=== PATIENT | male | born 1960 | race Caucasian/White ===

== ENCOUNTER → 2017-12-15 | Outpatient (REF) | payer MEDICARE ==
[2017-12-15 13:45] LABS: BASO # 0.1 10^3/uL (0.0-0.2); BASO % 1.5 % (0.0-1.0); EOS # 0.2 10^3/uL (0.0-0.50); EOS % 1.9 % (0.0-3.0); HEMATOCRIT 31.1 % (42.0-52.0); HEMOGLOBIN 10.3 g/dl (13.5-17.5); IMMATURE GRANULOCYTE % 0.4 % (0-3.0); LYMPH # 2.8 10^3/uL (1.5-4.5); LYMPH % 29.4 % (24.0-44.0); MEAN CORPUSCULAR HGB CONC 33.1 g/dl (32.0-36.5); MEAN CORPUSCULAR VOLUME 93.7 fl (80.0-96.0); MONO # 0.4 10^3/uL (0.0-0.8); MONO % 4.3 % (0.0-5.0); NEUTROPHILS % 62.5 % (36.0-66.0); PLATELET COUNT, AUTOMATED 466 10^3/uL (150-450); RED BLOOD COUNT 3.32 10^6/uL (4.30-6.10); RED CELL DISTRIBUTION WIDTH 12.9 % (11.5-14.5); WHITE BLOOD COUNT 9.6 10^3/uL (4.0-10.0)
[2017-12-15 14:02] LABS: ANION GAP 7 MEQ/L (8-16); BLOOD UREA NITROGEN 14 MG/DL (7-18); C REACTIVE PROTEIN QUANTITATIV 2.33 MG/DL (0.00-0.30); CALCIUM LEVEL 8.5 MG/DL (8.5-10.1); CARBON DIOXIDE LEVEL 28 MEQ/L (21-32); CHLORIDE LEVEL 108 MEQ/L (98-107); CREATININE FOR GFR 0.72 MG/DL (0.70-1.30); GLOMERULAR FILTRATION RATE > 60.0 (>56); GLUCOSE, FASTING 97 MG/DL (70-100); POTASSIUM SERUM 4.5 MEQ/L (3.5-5.1); SODIUM LEVEL 143 MEQ/L (136-145)
[2017-12-15 14:15] LABS: ERYTHROCYTE SEDIMENTATION RATE 83 mm/hr (0-20)
== END ==
LOC: M SFHCPLAZ 11:20
DX: L03.115 Cellulitis of right lower limb (principal)
CPT/HCPCS: 80048

== ENCOUNTER 2018-07-06 07:01 | Emergency (ER) | payer MEDICARE ==
[2018-07-06 07:35] LABS: BEDSIDE GLUCOSE 142 MG/DL (70-105)
[2018-07-06] MEDS: METOCLOPRAMIDE INJ 10MG/2ML VIAL (J2765) IV (07:50)
[2018-07-06] MEDS: NS 1,000 ML IV (07:50)
[2018-07-06 08:04] LABS: BASO # 0.1 10^3/uL (0.0-0.2); BASO % 0.4 % (0.0-1.0); EOS % 0.2 % (0.0-3.0); HEMATOCRIT 39.9 % (42.0-52.0); HEMOGLOBIN 13.5 g/dl (13.5-17.5); IMMATURE GRANULOCYTE % 0.5 % (0-3.0); LYMPH # 2.9 10^3/uL (1.5-4.5); LYMPH % 17.5 % (24.0-44.0); MEAN CORPUSCULAR HEMOGLOBIN 30.4 pg (27.0-33.0); MEAN CORPUSCULAR HGB CONC 33.8 g/dl (32.0-36.5); MEAN CORPUSCULAR VOLUME 89.9 fl (80.0-96.0); MONO # 0.4 10^3/uL (0.0-0.8); MONO % 2.4 % (0.0-5.0); NEUTROPHILS # 13.1 10^3/uL (1.8-7.7); PLATELET COUNT, AUTOMATED 333 10^3/uL (150-450); RED BLOOD COUNT 4.44 10^6/uL (4.30-6.10); RED CELL DISTRIBUTION WIDTH 12.3 % (11.5-14.5); WHITE BLOOD COUNT 16.6 10^3/uL (4.0-10.0)
[2018-07-06 08:29] LABS: ALBUMIN 3.6 GM/DL (3.2-5.2); ALBUMIN/GLOBULIN RATIO 1.33 (1.00-1.93); ALKALINE PHOSPHATASE 79 U/L (45-117); ALT/SGPT 15 U/L (12-78); ANION GAP 8 MEQ/L (8-16); AST/SGOT 5 U/L (7-37); BILIRUBIN,DIRECT 0.2 MG/DL (0.0-0.2); BILIRUBIN,TOTAL 0.7 MG/DL (0.2-1.0); BLOOD UREA NITROGEN 15 MG/DL (7-18); CARBON DIOXIDE LEVEL 32 MEQ/L (21-32); CHLORIDE LEVEL 102 MEQ/L (98-107); CREATININE FOR GFR 0.67 MG/DL (0.70-1.30); GLOMERULAR FILTRATION RATE > 60.0 (>56); GLUCOSE, FASTING 159 MG/DL (70-100); LIPASE 57 U/L (73-393); POTASSIUM SERUM 3.6 MEQ/L (3.5-5.1); SODIUM LEVEL 142 MEQ/L (136-145); TOTAL PROTEIN 6.3 GM/DL (6.4-8.2)
[2018-07-06] MEDS: ACETAMINOPHEN 325 MG TAB PO (08:50)
[2018-07-06] MEDS: KETOROLAC 30 MG/ML VIAL (J1885) IV (08:50)
[2018-07-06 09:17] LABS: ERYTHROCYTE SEDIMENTATION RATE 4 mm/hr (0-20)
[2018-07-06 09:50] LABS: KETONE, URINE AUTO RFX 1+ mg/dL (NEGATIVE); LEUKOCYTE ESTERASE UR AUTO RFX NEGATIVE (NEGATIVE); MUCUS, URINE RFX SMALL (NEGATIVE); NITRITE, URINE AUTO RFX NEGATIVE (NEGATIVE); RBC, URINE AUTO RFX 4 /HPF (0-3); SPECIFIC GRAVITY UR AUTO RFX 1.021 (1.002-1.035); SQUAM EPITHELIAL CELL UR AURFX 0 /HPF (0-6); WBC, URINE AUTO RFX 2 /HPF (0-3)
== END 2018-07-06 11:06 | disposition home or self-care (01) ==
LOC: M ED 07:01
DX: G43.909 Migraine, unspecified, not intractable, without status migrainosus (principal); D72.829 Elevated white blood cell count, unspecified; Z87.891 Personal history of nicotine dependence; I10 Essential (primary) hypertension; E78.00 Pure hypercholesterolemia, unspecified; K22.70 Barrett's esophagus without dysplasia; N40.0 Benign prostatic hyperplasia without lower urinary tract symptoms; M54.9 Dorsalgia, unspecified; Z79.899 Other long term (current) drug therapy; Z79.84 Long term (current) use of oral hypoglycemic drugs; Z79.4 Long term (current) use of insulin; Z79.1 Long term (current) use of non-steroidal anti-inflammatories (NSAID); Z88.1 Allergy status to other antibiotic agents; Z88.5 Allergy status to narcotic agent; Z91.048 Other nonmedicinal substance allergy status
CPT/HCPCS: J1885

== ENCOUNTER 2019-11-03 09:26 | Emergency (ER) | payer MEDICARE ==
[~2019-11-03] VITALS: Ht 180.3 cm; Wt 120.5 kg
[~2019-11-03 09:26] MED LIST: ATOR1TAB21 PO; ESOM1CAP5 PO; FLOM0.4C39 PO; FURO20TA2; HUMA100I5 SC; HYDR-3719 PO; IBUP80TA PO; INSULANT SC; LANTINJ4 SC; LIDO1PAD TOP; LYRI200C PO; MAXA10TA14 PO; METF10004 PO; NAPR-885 PO; QUIN1TAB3 PO; ZOFR4TAB14 PO; ZYVO1TAB PO
[2019-11-03] MEDS ORDERED: OMEP-221 (09:37)
[2019-11-03] MEDS ORDERED: OXYC1TAB15 (09:37)
[2019-11-03 11:08] LABS: BASO # 0.1 10^3/uL (0.0-0.2); BASO % 0.8 % (0.0-1.0); EOS # 0.2 10^3/uL (0.0-0.5); EOS % 1.9 % (0.0-3.0); HEMATOCRIT 40.1 % (42.0-52.0); HEMOGLOBIN 13.4 g/dl (13.5-17.5); LYMPH # 3.6 10^3/uL (1.5-5.0); LYMPH % 36.5 % (24.0-44.0); MEAN CORPUSCULAR HEMOGLOBIN 30.4 pg (27.0-33.0); MEAN CORPUSCULAR HGB CONC 33.4 g/dl (32.0-36.5); MEAN CORPUSCULAR VOLUME 90.9 fl (80.0-96.0); MONO # 0.5 10^3/uL (0.0-0.8); MONO % 4.9 % (0.0-5.0); NEUTROPHILS # 5.5 10^3/uL (1.5-8.5); NEUTROPHILS % 55.3 % (36.0-66.0); PLATELET COUNT, AUTOMATED 283 10^3/uL (150-450); RED BLOOD COUNT 4.41 10^6/uL (4.30-6.10); WHITE BLOOD COUNT 9.9 10^3/uL (4.0-10.0)
[2019-11-03 11:36] LABS: BLOOD UREA NITROGEN 20 MG/DL (7-18); CALCIUM LEVEL 8.9 MG/DL (8.5-10.1); CARBON DIOXIDE LEVEL 31 MEQ/L (21-32); CHLORIDE LEVEL 101 MEQ/L (98-107); CREATININE FOR GFR 0.96 MG/DL (0.70-1.30); GLOMERULAR FILTRATION RATE > 60.0 (>56); GLUCOSE, FASTING 252 MG/DL (70-100); POTASSIUM SERUM 4.5 MEQ/L (3.5-5.1); SODIUM LEVEL 137 MEQ/L (136-145)
[2019-11-03] MEDS ORDERED: DOXY100C37 PO (11:55)
[2019-11-03] MEDS ORDERED: ANEXSIA, NORCO 7.5MG/325MG TABLET(HYDROCODONE/APAP) PO ONE (12:00)
[2019-11-03 12:22] VITALS: BP 160/76
--- NOTE | 2019-11-03 12:56 | REP ---
Scrotal sonography: History: Left testicular swelling. Findings: High-resolution bilateral scrotal sonography demonstrates no evidence of intratesticular mass on either side. Right testis measures 5.4 x 2.6 x 3.4 cm. Left testicular dimensions are 5.3 x 2.8 x 4.1 cm. Doppler flow is present bilaterally in the testes. Resistive indices are 0.73 on the right and 0.71 on the left. There is a 4 mm epididymal cyst in the right epididymis. A 2 mm epididymal cyst is seen in the left epididymis. There is scrotal wall and subcutaneous swelling in the perineum lateral to the left testis, moderate in degree. This hypoechoic thickened subcutaneous region is hypervascular consistent with inflammation. Impression: No evidence of intratesticular mass lesion. Scrotal wall and subcutaneous perineal edema lateral to the left testis. No abscess seen. Question cellulitis or inflammation. No intratesticular mass lesion seen. Normal Doppler flow to both testes. Electronically Signed by Marcial Page MD 11/03/2019 03:11 P
== END 2019-11-03 12:28 | disposition home or self-care (01) ==
LOC: M ED 09:26
DX: N49.8 Inflammatory disorders of other specified male genital organs (principal); E11.65 Type 2 diabetes mellitus with hyperglycemia; I10 Essential (primary) hypertension; E78.5 Hyperlipidemia, unspecified; K21.9 Gastro-esophageal reflux disease without esophagitis; Z79.899 Other long term (current) drug therapy; Z79.4 Long term (current) use of insulin; Z88.0 Allergy status to penicillin; Z88.8 Allergy status to other drugs, medicaments and biological substances; Z91.048 Other nonmedicinal substance allergy status

== ENCOUNTER 2020-08-25 15:22 | Inpatient (IN) | payer MEDICARE ==
[~2020-08-25] VITALS: Ht 180.3 cm; Wt 123.5 kg
[~2020-08-25 15:22] MED LIST changes: +DOXY100C37 PO; +OMEP-221; +OXYC1TAB15
[2020-08-25] MEDS ORDERED: MORPHINE 4 MG/ML 1ML VIAL/SYRINGE (J2270) IV ONE ×2 (18:30→22:15)
[2020-08-25 19:08] LABS: BASO # 0.1 10^3/uL (0.0-0.2); BASO % 0.8 % (0.0-1.0); EOS # 0.2 10^3/uL (0.0-0.5); EOS % 1.7 % (0.0-3.0); HEMATOCRIT 37.7 % (42.0-52.0); HEMOGLOBIN 12.5 g/dl (13.5-17.5); LYMPH % 28.4 % (24.0-44.0); MEAN CORPUSCULAR HEMOGLOBIN 30.3 pg (27.0-33.0); MEAN CORPUSCULAR HGB CONC 33.2 g/dl (32.0-36.5); MEAN CORPUSCULAR VOLUME 91.3 fl (80.0-96.0); MONO # 0.6 10^3/uL (0.0-0.8); MONO % 5.4 % (0.0-5.0); NEUTROPHILS # 6.8 10^3/uL (1.5-8.5); NEUTROPHILS % 63.4 % (36.0-66.0); PLATELET COUNT, AUTOMATED 255 10^3/uL (150-450); RED BLOOD COUNT 4.13 10^6/uL (4.30-6.10); WHITE BLOOD COUNT 10.7 10^3/uL (4.0-10.0)
[2020-08-25 19:27] LABS: ERYTHROCYTE SEDIMENTATION RATE 20 mm/hr (0-20)
[2020-08-25 19:39] LABS: BLOOD UREA NITROGEN 16 MG/DL (7-18); C REACTIVE PROTEIN QUANTITATIV 0.76 MG/DL (0.00-0.30); CALCIUM LEVEL 8.6 MG/DL (8.5-10.1); CARBON DIOXIDE LEVEL 30 MEQ/L (21-32); CHLORIDE LEVEL 103 MEQ/L (98-107); CREATININE FOR GFR 0.79 MG/DL (0.70-1.30); GLOMERULAR FILTRATION RATE > 60.0 (>56); GLUCOSE, FASTING 280 MG/DL (70-100); POTASSIUM SERUM 4.4 MEQ/L (3.5-5.1); SODIUM LEVEL 139 MEQ/L (136-145)
--- NOTE | 2020-08-25 20:37 | REPVR ---
PROCEDURE INFORMATION: Exam: US Scrotum Exam date and time: 08/25/2020 8:06 PM Age: 60 years old Clinical indication: Scrotum pain; Additional info: Abscess L scrotum, has had prior TECHNIQUE: Imaging protocol: Real-time ultrasound of the scrotum and contents with color Doppler and image documentation. COMPARISON: Scrotal, US 11/03/2019 10:14 AM FINDINGS: Right testicle: Right testis measures 5.1 x 3.2 x 3.7 cm. Arterial and venous blood flow is detected. There is no mass. A microcalcification is apparent. Left testicle: Left testis measures 5.3 x 2.6 x 3.8 cm. Arterial and venous blood flow is detected. There is no mass. Epididymides: Right epididymis is normal appearance. There is a small 2.8 mm left epididymal head cyst. The left epididymal tail is mildly enlarged and hyperemic as well as hyperechoic. Scrotum: No scrotal thickening is apparent on the images provided other than directly adjacent to the tail of the left epididymis. IMPRESSION: 1. Normal appearance of the testes other than a microcalcification on the right. 2. Possible epididymitis in the left epididymal tail with mild inflammation in the surrounding soft tissues of the scrotum. Electronically signed by: Luz Maria Martell On 08/25/2020 20:38:01 PM
[2020-08-25] MEDS ORDERED: ISOVUE-370 76% 100ML VIAL As Ordered ONE (21:14)
--- NOTE | 2020-08-25 22:10 | REPVR ---
PROCEDURE INFORMATION: Exam: CT Abdomen And Pelvis With Contrast Exam date and time: 08/25/2020 9:24 PM Age: 60 years old Clinical indication: Other: Abscess scrotum; Additional info: Abscess scrotum, dm TECHNIQUE: Imaging protocol: Computed tomography of the abdomen and pelvis with intravenous contrast. Radiation optimization: All CT scans at this facility use at least one of these dose optimization techniques: automated exposure control; mA and/or kV adjustment per patient size (includes targeted exams where dose is matched to clinical indication); or iterative reconstruction. Contrast material: ISOVUE 370; Contrast volume: 100 ml; Contrast route: INTRAVENOUS (IV); COMPARISON: No relevant prior studies available. FINDINGS: Lungs: The lung bases are unremarkable. Liver: There are no focal liver lesions. Gallbladder and bile ducts: Normal. No calcified stones. No ductal dilation. Pancreas: The pancreas appears atrophic.The gallbladder is unremarkable. Spleen: The spleen is normal. Adrenal glands: The adrenal glands are unremarkable. Kidneys and ureters: The kidneys are unremarkable. Stomach and bowel: There is no evidence of intestinal obstruction. Appendix: No evidence of appendicitis. Intraperitoneal space: See "Reproductive" finding. Vasculature: There is no evidence of an infrarenal abdominal aortic aneurysm. Atherosclerosis. Lymph nodes: Unremarkable. No enlarged lymph nodes. Urinary bladder: The bladder is unremarkable. Reproductive: No air is seen in the scrotal sac. No soft tissue stranding or edema is seen in the upper medial thighs or buttocks. There appears to be edema and/or inflammation within the scrotal sac posterior inferiorly as well as a fluid collection the left of midline measuring 4 cm AP by 2 cm in width by 2.4 cm cc, series 303 images 72 -78, series 301 images 192-198, series 302 images 71-81. Bones/joints: Unremarkable. No acute fracture. Soft tissues: There is a fat-containing umbilical hernia. IMPRESSION: There appears to be a rim enhancing fluid collection within the scrotal sac posteriorly and inferiorly to the left midline which was not visualized on the ultrasound. It measures 2 x 2.4 x 4 cm. No air is seen within the scrotum. The inflammation does not appear to extend into the buttocks or upper thighs to suggest Morales gangrene. Electronically signed by: Luz Maria Martell On 08/25/2020 22:10:37 PM
[2020-08-25] MEDS ORDERED: LIDOCAINE 1% MDV 20ML VIAL SC ONE (22:15)
[2020-08-25] MEDS ORDERED: PIPERACILLIN/TAZOBACTAM SOD 3.375 GM in D5W MINI-BAG PLUS 50 ML IV ONE (23:30)
[2020-08-25] MEDS ORDERED: MIDAZOLAM INJ 2MG/2ML VIAL (J2250 PER 1MG) As Ordered ONE (23:41)
[2020-08-25] MEDS ORDERED: ROCURONIUM BROMIDE 50 MG/5 ML VIAL As Ordered ONE (23:41)
[2020-08-25] MEDS ORDERED: fentaNYL 100 MCG/2 ML INJECTION (J3010) As Ordered ONE (23:41)
[2020-08-25] MEDS ORDERED: dexameTHASONE 4 MG/ML 1ML VIAL (J1100 PER 1MG) As Ordered ONE (23:41)
[2020-08-25] MEDS ORDERED: LIDOCAINE 2% 100MG/5ML SDV (FOR ANES.) As Ordered ONE (23:41)
[2020-08-25] MEDS ORDERED: ONDANSETRON 4MG/2ML VIAL As Ordered ONE (23:41)
[2020-08-25] MEDS ORDERED: propofoL 200 MG/20 ML VIAL As Ordered ONE (23:41)
--- NOTE | 2020-08-25 23:42 | SMCUROLCON ---
Urology Consultation General Date of Consultation 08/25/20 Reason For Consultation This patient is seen for Cyst On Groin. History of Present Illness This is a 60 y/o M w/ a PMH significant for DM2, HTN, HL, and SQ abscesses, presenting to the ER w/ L scrotal swelling and pain. He noted that this began about 2-3 days ago and has gradually gotten worse. It is on the L side of his scrotum. He has noted increasing redness to his scrotum and inner L thigh as well. He has not seen any drainage. He denies trauma to his scrotum. He denies fevers. He notes previously having a perianal abscess that was incised and drained in a physician's office several years ago. He notes this quite painful and traumatic. CT A/P done here in the ER is notable for a 2 x 2.4 x 4cm abscess in his scrotum just to the left of midline. There is no SQ emphysema. Past Medical History Medical History see HPI Surgical Hstory I&D perianal abscess Allergies Allergies: Coded Allergies: meperidine (Verified Allergy, Severe, 11/03/19) ANGIOEDEMA TAPE (Verified Allergy, Unknown, 11/03/19) RASH clindamycin (Verified Allergy, Unknown, 11/03/19) RASH Review of Systems Constitutional: Denies: Fever, Chills, Sweats, Weakness, Malaise Pulmonary: Denies: Dyspnea, Cough Cardiovascular: Denies Chest Pain, Denies Palpitations Gastrointestinal: Denies: Nausea, Vomiting, Abdominal Pain Genitourinary: Reports: Other Symptoms (L scrotal swelling and pain) Psych: Reports: Mood Normal Physical Examination General Exam: Alert, Cooperative, No Acute Distress ENT EXAM: Atraumatic Chest Exam: Normal air movement Heart Exam: Rate Normal Abdomen Exam: Soft Male Exam L scrotal swelling w/ bulging SQ abscess seen and palpated on inferior aspect; mild erythema involving L scrotum and inner L thigh; mild tenderness to palpat ion; no crepitus; no active drainage Neuro Exam: Normal Speech Psych Exam: Mental status NL, Mood NL Vital Signs/I&O Vital Signs Date Time Temp Pulse Resp B/P (MAP) Pulse Ox O2 Delivery O2 Flow Rate FiO2 08/25/20 22:34 16 08/25/20 20:37 178/83 (114) 08/25/20 18:34 97.3 81 97 Room Air Laboratory Data 24H Labs Laboratory Tests 2 08/25/20 18:56: Immature Granulocyte % (Auto) 0.3, Neutrophils (%) (Auto) 63.4, Lymphocytes (%) (Auto) 28.4, Monocytes (%) (Auto) 5.4H, Eosinophils (%) (Auto) 1.7, Basophils (%) (Auto) 0.8, Neutrophils # (Auto) 6.8, Lymphocytes # (Auto) 3.0, Monocytes # (Auto) 0.6, Eosinophils # (Auto) 0.2, Basophils # (Auto) 0.1, Nucleated Red Blood Cells % (auto) 0.0, Erythrocyte Sedimentation Rate 20, Anion Gap 6L, Glomerular Filtration Rate > 60.0, Lactic Acid Level 1.6, Calcium Level 8.6, C- Reactive Protein, Quantitative 0.76H 08/25/20 19:44: Urine Color STRAW, Urine Appearance CLEAR, Urine pH 6.0, Urine Specific [place] 1.018, Urine Protein NEGATIVE, Urine Glucose (UA) 3+H, Urine Ketones NEGATIVE, Urine Blood NEGATIVE, Urine Nitrite NEGATIVE, Urine Bilirubin NEGATIVE, Urine U robilinogen 0.2, Urine Leukocyte Esterase NEGATIVE, Urine WBC (Auto) 0, Urine RBC (Auto) 1, Urine Hyaline Casts (Auto) 0, Urine Bacteria (Auto) NEGATIVE, Urine Squamous Epithelial Cells 0, Urine Mucus (Auto) SMALL, Urine Sperm (Auto) 08/25/20 22:32: Coronavirus (COVID-19)(PCR) NEGATIVE CBC/BMP Laboratory Tests 08/25/20 18:56 Assessment This is a 60 y/o M w/ a L scrotal abscess. I recommended a bedside scrotal incision and drainage but the patient refused due to extreme anxiety about possible pain. We therefore will have to do it in the OR. Informed consent was signed. Plan - informed consent signed for incision and drainage of left scrotal abscess - will be done in OR - zosyn given in ER - NPO - recommend admit to hospitalist service postop CARLOTTA BRADSHAW MD Aug 25, 2020 23:42
[2020-08-25] MEDS ORDERED: OMEP-221 PO (23:44)
[2020-08-25] MEDS ORDERED: FURO20TA2 PO (23:44)
[2020-08-25] MEDS ORDERED: ASPI-161 PO (23:44)
[2020-08-25] MEDS ORDERED: PERC7.5T11 PO (23:44)
[2020-08-25] MEDS ORDERED: LIDOCAINE 1% SDV 30ML VIAL As Ordered ONE (23:49)
[2020-08-25] MEDS ORDERED: BUPIVACAINE HCL 0.25% 30ML VIAL As Ordered ONE (23:50)
[2020-08-26] VITALS (9 sets, daily range): BP systolic 149–175; BP diastolic 70–89
[2020-08-26] MEDS ORDERED: DEXTROSE 50% 50 ML SYRINGE IV PRN (00:15)
[2020-08-26] MEDS ORDERED: MOM 30ML SUSPENSION UDC PO PRN (00:15)
[2020-08-26] MEDS ORDERED: MAALOX 30 ML SUSP *UDC PO PRN (00:15)
[2020-08-26] MEDS ORDERED: GLUCOSE 4GM CHEW TABLET PO PRN (00:15)
[2020-08-26] MEDS ORDERED: GLUCAGON INJ 1MG VIAL SC PRN (00:15)
[2020-08-26] MEDS ORDERED: ZOSYN 3.375GM VIAL (J2543) As Ordered ONE (00:35)
[2020-08-26] MEDS ORDERED: oxyCODONE 5MG TAB As Ordered ONE (01:44)
[2020-08-26] MEDS ORDERED: VANCOMYCIN HCL 1,000 MG, VIAL MATE ADAPTER 1 EACH in D5W 250 ML IV ONE (01:45)
[2020-08-26] MEDS ORDERED: ONDANSETRON 4MG/2ML VIAL IV PRN (01:45)
[2020-08-26] MEDS ORDERED: oxyCODONE 5MG TAB PO PRN (01:45)
[2020-08-26] MEDS ORDERED: fentaNYL 100 MCG/2 ML INJECTION (J3010) IV PRN (01:45)
[2020-08-26] MEDS ORDERED: LR 1,000 ML IV SCH (01:45)
[2020-08-26] MEDS: NS 1,000 ML IV SCH ×2 (03:21→09:04)
[2020-08-26] MEDS ORDERED: PREGABALIN 100 MG CAP (LYRICA) PO SCH (04:00)
[2020-08-26] MEDS ORDERED: OMEPRAZOLE 20 MG CAP PO SCH (04:00)
[2020-08-26] MEDS: ACETAMINOPHEN TAB 650MG DOSE (2X325MG) PO PRN ×2 (04:29→11:30)
--- NOTE | 2020-08-26 06:21 | HPEPDOC ---
[facility] Medical History & Physical Date of Admission Aug 26, 2020 Date of Service: Aug 26, 2020 Attending Physician: NATALEE DE DIOS MD History and Physical TIME OF SERVICE: 200am CHIEF COMPLAINT: pain HISTORY OF PRESENT ILLNESS: This 60 yr old M presented w c/o 06/07 in severity pain, redness and swelling of the left side of scrotum that begun around [place]; he waited until the holidays were over to come to the ER. He denied having f/c. He was diagnosed with a left scrotal abscess was given zosyn and underwent I&D. At the time of my evaluation his pain had subsided but not completely resolved. REVIEW OF SYSTEMS: 12-point review of systems negative except as listed in HPI PAST MEDICAL/ SURGICAL HISTORY: IDDM w neuropathy Chronic HTN Hx of Perirectal and scrotal abscesses Class 2 obesity Neck and back DJD DLP GERD SOCIAL HISTORY: Former smoker, doesnt drink alcohol or use recreational drugs FAMILY HISTORY: DM, HTN ALLERGIES: Please see below. HOME MEDICATIONS: Please see below. PHYSICAL EXAMINATION: VITAL SIGNS: Please see below. GENERAL APPEARANCE: NAD / doesnt appear toxic HEENT: EOMI / mask covering nose and mouth CARDIOVASCULAR: RRR/NMRG/ radial pulses intact LUNGS: CTAB on RA ABDOMEN: obese NEUROLOGICAL: speech not dysarthric PSYCHIATRIC: A&Ox 3 / able to understand and follow all commands LABORATORY DATA: 08/25/20 18:56 Immature Granulocyte % (Auto) 0.3, Neutrophils (%) (Auto) 63.4, Lymphocytes (%) (Auto) 28.4, Monocytes (%) (Auto) 5.4H, Eosinophils (%) (Auto) 1.7, Basophils (%) (Auto) 0.8, Neutrophils # (Auto) 6.8, Lymphocytes # (Auto) 3.0, Monocytes # (Auto) 0.6, Eosinophils # (Auto) 0.2, Basophils # (Auto) 0.1, Nucleated Red B lood Cells % (auto) 0.0, Erythrocyte Sedimentation Rate 20, Anion Gap 6L, Glomerular Filtration Rate > 60.0, Lactic Acid Level 1.6, Calcium Level 8.6, C- Reactive Protein, Quantitative 0.76H 08/25/20 19:44: Urine Color STRAW, Urine Appearance CLEAR, Urine pH 6.0, Urine Specific [place] 1.018, Urine Protein NEGATIVE, Urine Glucose (UA) 3+H, Urine Ketones NEGATIVE, Urine Blood NEGATIVE, Urine Nitrite NEGATIVE, Urine Bilirubin NEGATIVE, Urine Urobilinogen 0.2, Urine Leukocyte Esterase NEGATIVE, Urine WBC (Auto) 0, Urine RBC (Auto) 1, Urine Hyaline Casts (Auto) 0, Urine Bacteria (Auto) NEGATIVE, Urine Squamous Epithelial Cells 0, Urine Mucus (Auto) SMALL, Urine Sperm (Auto) 08/25/20 22:32: Coronavirus (COVID-19)(PCR) NEGATIVE 08/26/20 03:22: Bedside Glucose (Misc Panel) 78 08/26/20 06:08: Bedside Glucose (Misc Panel) 143H IMAGING: US Scrotum IMPRESSION: 1. Normal appearance of the testes other than a microcalcification on the right. 2. Possible epididymitis in the left epididymal tail with mild inflammation in the surrounding soft tissues of the scrotum. CT abd/pelvis IMPRESSION: There appears to be a rim enhancing fluid collection within the scrotal sac posteriorly and inferiorly to the left midline which was not visualized on the ultrasound. It measures 2 x 2.4 x 4 cm. No air is seen within the scrotum. The inflammation does not appear to extend into the buttocks or upper thighs to suggest Morales gangrene. MICROBIOLOGY: abscess cx pending... ASSESSMENT: is a 60 yr old w a hx of IDDM w neuropathy, HTN, Hx of Perirectal and scrotal abscesses, Class 2 obesity, DJD, DLP, BPH & GERD who underwent I&D to manage a scrotal abscess. PLAN: 1 Scrotal abscess Plan: transfer to medical floor /descalate abx to Vanc and Cefazolin pending abcess cx results / f/u w 2. IDDM w neuropathy Plan: diabetic diet / f/u accuchecks & A1C / hypoglycemia protocol / sliding scale insulin / hold oral anti-glycemic /decrease AM long acting insulin from 60 units in the morning + 50 units in the evening to 40 units in the morning + 30 units in the evening / c/w Pregabalin 3. Chronic HTN Plan: Quinapril + Furosemide 4. Neck and back DJD Plan: [place] 5. GERD Plan: Omeprazole 6. DLP Plan: Atorvastatin 7. Class 2 obesity BMI of 37.1 complicates care Since the patients BMI >35 with co-existing DM he is a candidate for bariatric surgery Plan: f/u A1C / the patient can f/u w his or her PCP for sleep apnea screening, ash kier boiler consult, to discuss staring Saxenda, which is indicated in patients with a BMI >27 with co-existing DM, HTN or dyslipidemia to help with weight control as an adjunct to exercise & referral to a Bariatric Surgeon / recommend cardiovascular exercise for 40 min 4-5 days a week DVT Px w Lovenox bc Mary Lou score is 7 points Dispo: possibly home tomorrow if cleared by Urology Home Medications Scheduled Aspirin (Aspirin EC) 81 Mg Tablet.dr, 81 MG PO DAILY Atorvastatin Calcium (Atorvastatin Calcium) 20 Mg Tab, 20 MG PO QHS Furosemide (Furosemide) 20 Mg Tablet, 20 MG PO DAILY Insulin Glargine (Lantus) 1 Units/0.01 Ml Susp, 50 UNITS SC QHS Insulin Glargine,Hum.rec.anlog (Lantus Solostar) 100 Unit/Ml Inj, 60 UNITS SC DAILY Insulin Lispro (Humalog Kwikpen U-100) 100 Unit/Ml Inj, 1 DOSE SC AC PER SLIDING SCALE Metformin HCl (Metformin HCl) 1,000 Mg Tab, 1,000 MG PO BID Naproxen (Naproxen) 500 Mg Tab, 500 MG PO BID Omeprazole (Omeprazole) 40 Mg Capsule.dr, 40 MG PO BID Pregabalin (Lyrica) 200 Mg Cap, 200 MG PO TID Quinapril Hcl (Quinapril HCl) 20 Mg Tab, 20 MG PO QHS Scheduled PRN Oxycodone HCl/Acetaminophen (Percocet 7.5-325 mg Tablet) 1 Each Tablet, 1 TAB PO Q6H PRN for PAIN Allergies Coded Allergies: meperidine (Verified Allergy, Severe, 11/03/19) ANGIOEDEMA TAPE (Verified Allergy, Unknown, 11/03/19) RASH clindamycin (Verified Allergy, Unknown, 11/03/19) RASH A-FIB/CHADSVASC A-FIB History Current/History of A-Fib/PAF?: No Current PO Anticoag Therapy: No NATALEE DE DIOS MD Aug 26, 2020 06:21
[2020-08-26] MEDS: VANCOMYCIN HCL 1,000 MG, VIAL MATE ADAPTER 1 EACH in D5W 250 ML IV SCH ×2 (06:32→11:29)
[2020-08-26] MEDS: HumaLOG INSULIN (NovoLOG) PER UNIT SC SCH ×3 (06:32→11:35)
[2020-08-26] MEDS: ANEXSIA, NORCO 7.5MG/325MG TABLET(HYDROCODONE/APAP) PO PRN ×2 (06:34→12:29)
[2020-08-26 06:49] LABS: HEMATOCRIT 36.6 % (42.0-52.0); MEAN CORPUSCULAR HEMOGLOBIN 29.9 pg (27.0-33.0); MEAN CORPUSCULAR HGB CONC 32.8 g/dl (32.0-36.5); PLATELET COUNT, AUTOMATED 238 10^3/uL (150-450); RED BLOOD COUNT 4.02 10^6/uL (4.30-6.10); WHITE BLOOD COUNT 8.6 10^3/uL (4.0-10.0)
[2020-08-26 07:01] LABS: HEMOGLOBIN A1c 9.4 %
[2020-08-26 07:13] LABS: BLOOD UREA NITROGEN 12 MG/DL (7-18); CALCIUM LEVEL 8.5 MG/DL (8.5-10.1); CARBON DIOXIDE LEVEL 32 MEQ/L (21-32); CHLORIDE LEVEL 105 MEQ/L (98-107); CREATININE FOR GFR 0.72 MG/DL (0.70-1.30); GLOMERULAR FILTRATION RATE > 60.0 (>56); GLUCOSE, FASTING 158 MG/DL (70-100); SODIUM LEVEL 141 MEQ/L (136-145)
[2020-08-26] MEDS ORDERED: LEVEMIR (INSULIN DETEMIR) 1 UNITS/0.01ML SC SCH ×2 (09:00→21:00)
[2020-08-26] MEDS ORDERED: ASPIRIN 81 MG ENTERIC TAB PO SCH (09:00)
[2020-08-26] MEDS ORDERED: ENOXAPARIN 40MG/0.4ML SYRINGE (J1650 PER 10MG) SC SCH (09:00)
[2020-08-26] MEDS ORDERED: ceFAZolin SOD 1 GM in D5W MINI-BAG PLUS 50 ML IV SCH (09:00)
[2020-08-26] MEDS ORDERED: FUROSEMIDE 20 MG TAB PO SCH (09:00)
--- NOTE | 2020-08-26 10:19 | RO ---
OPERATIVE NOTE DATE OF OPERATION: 08/26/2020 PREOPERATIVE DIAGNOSIS: Left scrotal abscess. POSTOPERATIVE DIAGNOSIS: Left scrotal abscess. PROCEDURE: Incision and drainage of left scrotal abscess. SURGEON: Reji Jha MD TRAINING ASSOCIATE: None. ANESTHESIA: Monitored Anesthesia Care (MAC) OPERATIVE INDICATIONS: This is a 60-year-old male who presented to the emergency room with findings consistent with left scrotal abscess approximately 4 cm in size. It was recommended he be brought to the operating room today for treatment. DESCRIPTION OF PROCEDURE: The patient was brought to the operating room and MAC anesthesia was administered. Broad spectrum antibiotics were infused. He was placed in the supine position and prepped and draped in usual sterile fashion. At this point approximately 3 cm longitudinal incision was made over the abscess in the left hemiscrotum. As soon as that was done approximately 20 mL of pus drained from the scrotal abscess. Swabs were used to obtain cultures. Once all the pus had drained the abscess cavity was thoroughly irrigated with normal saline. After that was done the patient did appear to have some bleeding from the abscess cavity and this was cauterized. Once satisfied with hemostasis the abscess cavity was packed with a moist Winston dressing and this was covered with ABD gauze pads. This marked the conclusion of the procedure. The patient was awakened from anesthesia and transferred to the recovery room in stable condition. ESTIMATED BLOOD LOSS: 20 mL. COMPLICATIONS: None. SPECIMENS: Cultures from scrotal abscess. PLAN: The patient will be admitted to the hospital for the next day or two and be monitored. Assuming he feels better he can be discharged home. He will have to continue with wet-to-dry dressings at least twice daily and then follow up in urology clinic in about one week. MATEO
[2020-08-26] MEDS ORDERED: BACT800T5 PO (12:30)
--- NOTE | 2020-08-26 12:54 | IPNPDOC ---
Subjective Review oF Systems Chief Complaint The patient is a 60-year-old male admitted with a reason for visit of Abscess Of Scrotum. Events since Last Encounter No acute events o/n. Scrotal pain improved. Ambulating well. No f/c/ns. Objective Physical Examination General Exam: Alert, Cooperative, No Acute Distress Neuro Exam: Normal Speech Psych Exam: Mental status NL, Mood NL Other physical findings L hemiscrotum w/ less edema and erythema - packing removed w/ no active drainage Vital Signs/I&O Vital Signs Date Time Temp Pulse Resp B/P (MAP) Pulse Ox O2 Delivery O2 Flow Rate FiO2 08/26/20 12: 18 08/26/20 10:00 98.2 73 162/83 (109) 96 Room Air I&O- Last 24 Hours up to 6 AM 08/26/20 05:59 Intake Total 600 ml Output Total 910 ml Balance -310 ml Laboratory Data Labs 24H Laboratory Tests 2 08/25/20 18:56: Immature Granulocyte % (Auto) 0.3, Neutrophils (%) (Auto) 63.4, Lymphocytes (%) (Auto) 28.4, Monocytes (%) (Auto) 5.4H, Eosinophils (%) (Auto) 1.7, Basophils (%) (Auto) 0.8, Neutrophils # (Auto) 6.8, Lymphocytes # (Auto) 3.0, Monocytes # (Auto) 0.6, Eosinophils # (Auto) 0.2, Basophils # (Auto) 0.1, Nucleated Red Blood Cells % (auto) 0.0, Erythrocyte Sedimentation Rate 20, Anion Gap 6L, Glomerular Filtration Rate > 60.0, Lactic Acid Level 1.6, Calcium Level 8.6, C- Reactive Protein, Quantitative 0.76H 08/25/20 19:44: Urine Color STRAW, Urine Appearance CLEAR, Urine pH 6.0, Urine Specific [place] 1.018, Urine Protein NEGATIVE, Urine Glucose (UA) 3+H, Urine Ketones NEGATIVE, Urine Blood NEGATIVE, Urine Nitrite NEGATIVE, Urine Bilirubin NEGATIVE, Urine Urobilinogen 0.2, Urine Leukocyte Esterase NEGATIVE, Urine WBC (Auto) 0, Urine RBC (Auto) 1, Urine Hyaline Casts (Auto) 0, Urine Bacteria (Auto) NEGATIVE, Ur ine Squamous Epithelial Cells 0, Urine Mucus (Auto) SMALL, Urine Sperm (Auto) 08/25/20 22:32: Coronavirus (COVID-19)(PCR) NEGATIVE 08/26/20 03:22: Bedside Glucose (Misc Panel) 78 08/26/20 06:08: Bedside Glucose (Misc Panel) 143H 08/26/20 06:32: Nucleated Red Blood Cells % (auto) 0.0, Anion Gap 4L, Glomerular Filtration Rate > 60.0, Estimated Mean Plasma Glucose 223H, Hemoglobin A1c 9.4, Calcium Level 8.5 08/26/20 11:31: Bedside Glucose (Misc Panel) 253H CBC/BMP Laboratory Tests 08/25/20 18:56 08/26/20 06:32 FSBS Laboratory Tests Test 08/26/20 03:22 08/26/20 06:08 08/26/20 11:31 Range/Units Bedside Glucose (Misc Panel) 78 143 253 70-105 MG/DL Microbiology Microbiology 08/26/20 Gram Stain - Final, Resulted 08/26/20 Abscess Culture, Resulted Pending 08/26/20 Anaerobic Culture, Received Pending Assessment/Plan Date Seen The patient was seen on 08/26/20. Patient Summary This is 60 y/o M POD1 s/p I&D of left scrotal abscess. Pain is improved. WBC normal this morning. No fevers. Gram stain and cultures pending. Plan/VTE VTE Prophylaxis Ordered?: Yes VTE Exclusion Mechanical Proph: N/A:VTE Prophy Ordered Plan - change dressing wet to dry daily - will demonstrate to patient's so she can do it - can switch to bactrim bid for 2 wks - will f/u on culture results and change as needed - will schedule f/u in urology office next wk CARLOTTA BRADSHAW MD Aug 26, 2020 12:54
--- NOTE | 2020-08-26 12:55 | DS.PDOC ---
Discharge Summary General Date of Admission Aug 26, 2020 at 00:10 Date of Discharge 08/26/20 Specialist/Consultants Involve urology dr ruiz Discharge Summary PROCEDURES PERFORMED DURING STAY: [None]. DISCHARGE DIAGNOSES: #scrotal abscess #IDDM w neuropathy #Chronic HTN #Hx of Perirectal and scrotal abscesses #Class 2 obesity #Neck and back DJD #DLP #GERD COMPLICATIONS/CHIEF COMPLAINT: Abscess Of Scrotum. HPI/Hospital Course: This 60 yr old M presented w c/o 06/07 in severity pain, redness and swelling of the left side of scrotum that begun around [place]; he waited until the holidays were over to come to the ER. He denied having f/c. He was diagnosed with a left scrotal abscess was given zosyn and underwent I&D. He was seen in consultation by urology with recommendations for oral antibiotics and outpatient follow up. Hospital stay was otherwise unremarkable. DISCHARGE MEDICATIONS: Please see below. ALLERGIES: Please see below. PHYSICAL EXAMINATION ON DISCHARGE: VITAL SIGNS: Please see below. GENERAL APPEARANCE: NAD / doesnt appear toxic HEENT: EOMI / mask covering nose and mouth CARDIOVASCULAR: RRR/NMRG/ radial pulses intact LUNGS: CTAB on RA ABDOMEN: obese NEUROLOGICAL: speech not dysarthric PSYCHIATRIC: A&Ox 3 / able to understand and follow all commands LABORATORY DATA: Please see below. ACTIVITY: [As tolerated]. DISPOSITION: Discharge home DISCHARGE INSTRUCTIONS: 1. Follow up PCP in 3-5 days. 2. Follow up urology within one week as scheduled 3. Dressing changes as directed by urology. DISCHARGE CONDITION: [Stable]. TIME SPENT ON DISCHARGE: 35 minutes. Vital Signs/I&Os Vital Signs Date Time Temp Pulse Resp B/P (MAP) Pulse Ox O2 Delivery O2 Flow Rate FiO2 08/26/20 12:29 18 08/26/20 10:00 98.2 73 162/83 (109) 96 Room Air I&O- Last 24 Hours up to 6 AM 08/26/20 06:00 Intake Total 960 ml Output Total 1310 ml Balance -350 ml Laboratory Data Labs 24H Laboratory Tests 2 08/25/20 18:56: Immature Granulocyte % (Auto) 0.3, Neutrophils (%) (Auto) 63.4, Lymphocytes (%) (Auto) 28.4, Monocytes (%) (Auto) 5.4H, Eosinophils (%) (Auto) 1.7, Basophils (%) (Auto) 0.8, Neutrophils # (Auto) 6.8, Lymphocytes # (Auto) 3.0, Monocytes # (Auto) 0.6, Eosinophils # (Auto) 0.2, Basophils # (Auto) 0.1, Nucleated Red Blood Cells % (auto) 0.0, Erythrocyte Sedimentation Rate 20, Anion Gap 6L, Glomerular Filtration Rate > 60.0, Lactic Acid Level 1.6, Calcium Level 8.6, C- Reactive Protein, Quantitative 0.76H 08/25/20 19:44: Urine Color STRAW, Urine Appearance CLEAR, Urine pH 6.0, Urine Specific [place] 1.018, Urine Protein NEGATIVE, Urine Glucose (UA) 3+H, Urine Ketones NEGATIVE, Urine Blood NEGATIVE, Urine Nitrite NEGATIVE, Urine Bilirubin NEGATIVE, Urine Urobilinogen 0.2, Urine Leukocyte Esterase NEGATIVE, Urine WBC (Auto) 0, Urine RBC (Auto) 1, Urine Hyaline Casts (Auto) 0, Urine Bacteria (Auto) NEGATIVE, Urine Squamous Epithelial Cells 0, Urine Mucus (Auto) SMALL, Urine Sperm (Auto) 08/25/20 22:32: Coronavirus (COVID-19)(PCR) NEGATIVE 08/26/20 03:22: Bedside Glucose (Misc Panel) 78 08/26/20 06:08: Bedside Glucose (Misc Panel) 143H 08/26/20 06:32: Nucleated Red Blood Cells % (auto) 0.0, Anion Gap 4L, Glomerular Filtration Rate > 60.0, Estimated Mean Plasma Glucose 223H, Hemoglobin A1c 9.4, Calcium Level 8.5 08/26/20 11:31: Bedside Glucose (Misc Panel) 253H CBC/BMP Laboratory Tests 08/25/20 18:56 08/26/20 06:32 FSBS Laboratory Tests Test 08/26/20 03:22 08/26/20 06:08 08/26/20 11:31 Range/Units Bedside Glucose (Misc Panel) 78 143 253 70-105 MG/DL Microbiology Microbiology 08/26/20 Gram Stain - Final, Resulted 08/26/20 Abscess Culture, Resulted Pending 08/26/20 Anaerobic Culture, Received Pending Discharge Medications Scheduled Aspirin (Aspirin EC) 81 Mg Tablet.dr, 81 MG PO DAILY, (Reported) Atorvastatin Calcium (Atorvastatin Calcium) 20 Mg Tab, 20 MG PO QHS, (Reported) Furosemide (Furosemide) 20 Mg Tablet, 20 MG PO DAILY, (Reported) Insulin Glargine (Lantus) 1 Units/0.01 Ml Susp, 50 UNITS SC QHS, (Reported) Insulin Glargine,Hum.rec.anlog (Lantus Solostar) 100 Unit/Ml Inj, 60 UNITS SC DAILY, (Reported) Insulin Lispro (Humalog Kwikpen U-100) 100 Unit/Ml Inj, 1 DOSE SC AC, (Reported) PER SLIDING SCALE Metformin HCl (Metformin HCl) 1,000 Mg Tab, 1,000 MG PO BID, (Reported) Omeprazole (Omeprazole) 40 Mg Capsule.dr, 40 MG PO BID, (Reported) Pregabalin (Lyrica) 200 Mg Cap, 200 MG PO TID, (Reported) Quinapril Hcl (Quinapril HCl) 20 Mg Tab, 20 MG PO QHS, (Reported) Sulfamethoxazole/Trimethoprim (Bactrim Ds Tablet) 1 Each Tablet, 1 TAB PO BID Scheduled PRN Oxycodone HCl/Acetaminophen (Percocet 7.5-325 mg Tablet) 1 Each Tablet, 1 TAB PO Q6H PRN for PAIN, (Reported) Allergies Coded Allergies: meperidine (Verified Allergy, Severe, 11/03/19) ANGIOEDEMA TAPE (Verified Allergy, Unknown, 11/03/19) RASH clindamycin (Verified Allergy, Unknown, 11/03/19) RASH JOLENE MONAE MD Aug 26, 2020 12:55
[2020-08-26] MEDS ORDERED: ATORVASTATIN 20 MG TAB PO SCH (21:00)
[2020-08-26] MEDS ORDERED: QUINAPRIL 20 MG TAB PO SCH (21:00)
== END 2020-08-26 14:30 | disposition home or self-care (01) | DRG 728 ==
LOC: M ED 15:22 → M ED INP 08-26 00:10 → M MS5PR 08-26 02:12
PROVIDERS: ADMIT Internal Medicine; ATTEND Internal Medicine
PROC: 0V953ZZ Drainage of Scrotum, Percutaneous Approach (ICD-10-PCS; principal; 2020-08-26)
DX: N49.2 Inflammatory disorders of scrotum (principal); E11.40 Type 2 diabetes mellitus with diabetic neuropathy, unspecified; I10 Essential (primary) hypertension; K21.9 Gastro-esophageal reflux disease without esophagitis; M54.2 Cervicalgia; M54.5 Low back pain; E66.9 Obesity, unspecified; Z79.82 Long term (current) use of aspirin; Z79.899 Other long term (current) drug therapy; Z88.8 Allergy status to other drugs, medicaments and biological substances

== ENCOUNTER 2021-03-10 06:07 | Inpatient (IN) | payer MEDICARE ==
[~2021-03-10] VITALS: Ht 180.3 cm; Wt 118.9 kg
[~2021-03-10 06:07] MED LIST changes: +ASPI-161 PO; +BACT800T5 PO; +DOXY-443 PO; -DOXY100C37 PO; +FURO20TA2 PO; -OMEP-221; +OMEP40CA5; +OMEP40CA5 PO; -OXYC1TAB15; +OXYC7.5T3; +PERC7.5T11 PO
[2021-03-10] MEDS ORDERED: KETOROLAC 30 MG/ML 1ML VIAL IV ONE (07:05)
[2021-03-10] MEDS ORDERED: NS 1,000 ML IV ONE (07:05)
[2021-03-10] MEDS ORDERED: ONDANSETRON 4MG/2ML VIAL IV ONE (07:05)
[2021-03-10] MEDS ORDERED: LISI20TA33 (07:11)
[2021-03-10] MEDS ORDERED: SUMA100T2 PO (07:11)
[2021-03-10] MEDS ORDERED: CARV12.5 PO (07:11)
[2021-03-10] MEDS ORDERED: TOPI50TA9 PO (07:11)
[2021-03-10] MEDS ORDERED: SPIR1TAB34 PO (07:11)
[2021-03-10 07:34] LABS: BASO # 0.1 10^3/uL (0.0-0.2); BASO % 0.4 % (0.0-1.0); EOS # 0.1 10^3/uL (0.0-0.5); EOS % 0.4 % (0.0-3.0); HEMATOCRIT 26.8 % (42.0-52.0); HEMOGLOBIN 8.8 g/dl (13.5-17.5); LYMPH # 3.9 10^3/uL (1.5-5.0); LYMPH % 20.5 % (24.0-44.0); MEAN CORPUSCULAR HEMOGLOBIN 29.7 pg (27.0-33.0); MEAN CORPUSCULAR HGB CONC 32.8 g/dl (32.0-36.5); MEAN CORPUSCULAR VOLUME 90.5 fl (80.0-96.0); MONO # 0.7 10^3/uL (0.0-0.8); MONO % 3.7 % (2.0-8.0); NEUTROPHILS % 73.4 % (36.0-66.0); PLATELET COUNT, AUTOMATED 419 10^3/uL (150-450); RED BLOOD COUNT 2.96 10^6/uL (4.30-6.10); WHITE BLOOD COUNT 19.1 10^3/uL (4.0-10.0)
[2021-03-10 08:11] LABS: ACETONE/KETONE 0.95 MG/DL (<2.81); ALBUMIN 2.7 GM/DL (3.2-5.2); ALT/SGPT 18 U/L (12-78); BILIRUBIN,DIRECT < 0.1 MG/DL (0.0-0.2); BILIRUBIN,TOTAL 0.3 MG/DL (0.2-1.0); CK-MB VALUE MASS < 1.0 NG/ML (<3.6); CPK CREATINE PHOSPHOKINASE 69 U/L (39-308); LIPASE 51 U/L (73-393); MAGNESIUM LEVEL 0.9 MG/DL (1.8-2.4); MB/CK RELATIVE INDEX 1.45 (< OR =4); PHOSPHORUS LEVEL 4.1 MG/DL (2.5-4.9); TOTAL PROTEIN 7.3 GM/DL (6.4-8.2); TROPONIN I < 0.02 NG/ML (< 0.10)
[2021-03-10 08:19] LABS: OSMOLALITY SERUM 296 MOSM/KG (275-295)
[2021-03-10] MEDS ORDERED: MAG SULF 1GM/100ML (MAG RUN) 1 GM in IV 1 EA IV ONE ×2 (08:20→13:00)
[2021-03-10] MEDS ORDERED: MAGN1CAP PO (08:22)
[2021-03-10] MEDS ORDERED: GASTROGRAFIN SOLUTION 30ML (Q9963) As Ordered ONE (08:42)
[2021-03-10] MEDS: GASTROGRAFIN SOLUTION 30ML PO SCH (08:45)
[2021-03-10 09:35] LABS: RSV AMPLIFICATION NEGATIVE (NEGATIVE)
[2021-03-10] MEDS ORDERED: cefTRIAXone SOD 1 GM in D5W MINI-BAG PLUS 50 ML IV ONE (11:25)
[2021-03-10] MEDS ORDERED: HumaLOG INSULIN (NovoLOG) PER UNIT SC SCH ×3 (12:00→21:00)
[2021-03-10] MEDS ORDERED: GLUCOSE 4GM CHEW TABLET PO PRN (12:15)
[2021-03-10] MEDS ORDERED: GLUCAGON INJ 1MG VIAL SC PRN (12:15)
[2021-03-10] MEDS ORDERED: MAGN500T12 PO (13:16)
[2021-03-10] MEDS ORDERED: TRUL10IN SC (13:16)
[2021-03-10] MEDS ORDERED: LISI20TA33 PO (13:16)
[2021-03-10 13:18] LABS: HEMATOCRIT 23.5 % (42.0-52.0); HEMOGLOBIN 7.8 g/dl (13.5-17.5)
[2021-03-10] MEDS ORDERED: HUMA100I5 SC (13:18)
[2021-03-10] MEDS ORDERED: HOME MED LIST COMPLETE! XX SCH (13:20)
[2021-03-10 13:40] LABS: CALCIUM LEVEL 7.3 MG/DL (8.5-10.1); CREATININE FOR GFR 2.02 MG/DL (0.70-1.30); GLOMERULAR FILTRATION RATE 36.3 (>56); PERCENT SATURATION 19.1 % (19.7-50.0); POTASSIUM SERUM 4.3 MEQ/L (3.5-5.1)
[2021-03-10] MEDS: NS 1,000 ML IV SCH ×2 (14:22→22:01)
[2021-03-10] MEDS ORDERED: SUMAtriptan SUCCINATE 25 MG TAB PO PRN (16:10)
[2021-03-10 18:30] LABS: HEMATOCRIT 25.2 % (42.0-52.0); HEMOGLOBIN 8.2 g/dl (13.5-17.5)
[2021-03-10] MEDS ORDERED: PERCOCET 5MG/325MG TAB PO PRN (19:05)
[2021-03-10] MEDS ORDERED: PILL CUTTER 1 EACH XX PRN (19:10)
[2021-03-10] MEDS: CARVedilol 12.5 MG TAB PO SCH (20:28)
[2021-03-10] MEDS: ATORVASTATIN 20 MG TAB PO SCH (20:28)
[2021-03-10] MEDS: TOPIRAMATE (TopAMAX) 100 MG TAB PO SCH (20:29)
[2021-03-10 21:40] VITALS: BP 182/70
[2021-03-10] MEDS: LEVEMIR (INSULIN DETEMIR) 1 UNITS/0.01ML SC SCH (22:01)
[2021-03-11] VITALS (20 sets, daily range): BP systolic 135–200; BP diastolic 61–92
[2021-03-11 00:31] LABS: HEMATOCRIT 21.3 % (42.0-52.0)
[2021-03-11 00:34] LABS: HEMOGLOBIN 6.9 g/dl (13.5-17.5)
[2021-03-11] MEDS ORDERED: NS 1,000 ML IV SCH (00:45)
[2021-03-11 08:17] LABS: BASO # 0.1 10^3/uL (0.0-0.2); BASO % 0.6 % (0.0-1.0); EOS # 0.1 10^3/uL (0.0-0.5); HEMATOCRIT 28.4 % (42.0-52.0); LYMPH # 3.1 10^3/uL (1.5-5.0); LYMPH % 25.2 % (24.0-44.0); MEAN CORPUSCULAR HEMOGLOBIN 29.1 pg (27.0-33.0); MEAN CORPUSCULAR VOLUME 90.7 fl (80.0-96.0); MONO # 0.8 10^3/uL (0.0-0.8); MONO % 6.2 % (2.0-8.0); NEUTROPHILS % 65.9 % (36.0-66.0); PLATELET COUNT, AUTOMATED 355 10^3/uL (150-450); RED BLOOD COUNT 3.13 10^6/uL (4.30-6.10); WHITE BLOOD COUNT 12.1 10^3/uL (4.0-10.0)
[2021-03-11 08:27] LABS: HEMOGLOBIN 9.1 g/dl (13.5-17.5)
[2021-03-11 08:38] LABS: CALCIUM LEVEL 7.8 MG/DL (8.5-10.1); CREATININE FOR GFR 1.77 MG/DL (0.70-1.30); GLOMERULAR FILTRATION RATE 42.3 (>56); MAGNESIUM LEVEL 1.5 MG/DL (1.8-2.4); POTASSIUM SERUM 4.5 MEQ/L (3.5-5.1)
[2021-03-11] MEDS ORDERED: LEVEMIR (INSULIN DETEMIR) 1 UNITS/0.01ML SC SCH (09:00)
[2021-03-11] MEDS ORDERED: MAGNESIUM GLUCONATE 500 MG TAB PO SCH (09:00)
[2021-03-11 09:20] LABS: FOLATE 6.4 NG/ML
[2021-03-11] MEDS ORDERED: MAGNESIUM CITRATE 300 ML BTL PO ONE (09:40)
[2021-03-11] MEDS ORDERED: BISACODYL 10 MG SUPP PR PRN (09:40)
[2021-03-11] MEDS: LEVEMIR (INSULIN DETEMIR) 1 UNITS/0.01ML SC SCH ×2 (10:16→20:56)
[2021-03-11] MEDS: ASPIRIN 81MG ENTERIC TABLET PO SCH (10:37)
[2021-03-11] MEDS: IRON POLYSAC (NIFEREX) 150 MG CAP PO SCH ×2 (10:37→20:55)
[2021-03-11] MEDS: MIRALAX *UNIT DOSE* 17GM PACKET PO SCH (10:40)
[2021-03-11] MEDS: HumaLOG INSULIN (NovoLOG) PER UNIT SC SCH ×3 (13:30→20:57)
[2021-03-11] MEDS: BISACODYL 10 MG SUPP PR SCH ×2 (14:35→20:58)
[2021-03-11] MEDS: cefTRIAXone SOD 1 GM in D5W MINI-BAG PLUS 50 ML IV SCH (14:36)
[2021-03-11] MEDS ORDERED: CYANOCOBALAMIN 1,000MCG/ML VIAL (J3420) IM ONE (15:00)
[2021-03-11 15:12] LABS: HEMATOCRIT 28.8 % (42.0-52.0); HEMOGLOBIN 9.6 g/dl (13.5-17.5)
[2021-03-11] MEDS: hydrALAZINE 20MG/ML 1ML VIAL (J0360 PER 20MG) IV PRN ×2 (17:08→18:18)
[2021-03-11] MEDS: MAGNESIUM GLUCONATE 500 MG TAB PO SCH (20:55)
[2021-03-11] MEDS: **hydrALAZINE** 10 MG TAB PO SCH (20:55)
[2021-03-11] MEDS: TOPIRAMATE (TopAMAX) 100 MG TAB PO SCH (20:55)
[2021-03-11] MEDS: CARVedilol 12.5 MG TAB PO SCH (20:56)
[2021-03-11] MEDS: ATORVASTATIN 20 MG TAB PO SCH (20:56)
[2021-03-11 21:02] LABS: HEMATOCRIT 29.8 % (42.0-52.0); HEMOGLOBIN 9.9 g/dl (13.5-17.5)
[2021-03-11] MEDS ORDERED: **hydrALAZINE** 10 MG TAB PO SCH (22:00)
[2021-03-12] VITALS (10 sets, daily range): BP systolic 141–182; BP diastolic 65–92
[2021-03-12] MEDS: **hydrALAZINE** 10 MG TAB PO SCH ×4 (02:25→21:25)
[2021-03-12 03:25] LABS: HEMATOCRIT 29.3 % (42.0-52.0); HEMOGLOBIN 9.6 g/dl (13.5-17.5); MEAN CORPUSCULAR HEMOGLOBIN 29.1 pg (27.0-33.0); MEAN CORPUSCULAR HGB CONC 32.8 g/dl (32.0-36.5); MEAN CORPUSCULAR VOLUME 88.8 fl (80.0-96.0); PLATELET COUNT, AUTOMATED 438 10^3/uL (150-450); WHITE BLOOD COUNT 17.8 10^3/uL (4.0-10.0)
[2021-03-12 03:53] LABS: CALCIUM LEVEL 8.4 MG/DL (8.5-10.1); CREATININE FOR GFR 1.59 MG/DL (0.70-1.30); GLOMERULAR FILTRATION RATE 47.8 (>56); MAGNESIUM LEVEL 1.8 MG/DL (1.8-2.4); POTASSIUM SERUM 3.7 MEQ/L (3.5-5.1)
[2021-03-12] MEDS: DEXTROSE 50% 50 ML SYRINGE IV PRN ×2 (04:05→08:04)
[2021-03-12] MEDS: HumaLOG INSULIN (NovoLOG) PER UNIT SC SCH ×4 (07:30→21:00)
[2021-03-12] MEDS: MAGNESIUM GLUCONATE 500 MG TAB PO SCH ×2 (08:02→21:25)
[2021-03-12] MEDS: CYANOCOBALAMIN 500 MCG TAB PO SCH (08:02)
[2021-03-12] MEDS: ASPIRIN 81MG ENTERIC TABLET PO SCH (08:02)
[2021-03-12] MEDS: IRON POLYSAC (NIFEREX) 150 MG CAP PO SCH ×2 (08:02→21:25)
[2021-03-12] MEDS: BISACODYL 10 MG SUPP PR SCH ×2 (08:02→21:00)
[2021-03-12] MEDS: MIRALAX *UNIT DOSE* 17GM PACKET PO SCH (08:03)
[2021-03-12] MEDS ORDERED: MAGNESIUM CITRATE 300 ML BTL PO ONE (09:00)
[2021-03-12 09:21] LABS: HEMATOCRIT 29.8 % (42.0-52.0); HEMOGLOBIN 9.8 g/dl (13.5-17.5)
[2021-03-12] MEDS: cefTRIAXone SOD 1 GM in D5W MINI-BAG PLUS 50 ML IV SCH (13:10)
[2021-03-12 15:33] LABS: HEMATOCRIT 28.9 % (42.0-52.0); HEMOGLOBIN 9.4 g/dl (13.5-17.5)
[2021-03-12] MEDS ORDERED: lisinopriL 40 MG TAB PO ONE (15:50)
[2021-03-12] MEDS ORDERED: ACETAMINOPHEN TAB 650MG DOSE (2X325MG) PO PRN (16:50)
[2021-03-12] MEDS ORDERED: LEVEMIR (INSULIN DETEMIR) 1 UNITS/0.01ML SC SCH ×2 (21:00)
[2021-03-12] MEDS: ATORVASTATIN 20 MG TAB PO SCH (21:25)
[2021-03-12] MEDS: CARVedilol 12.5 MG TAB PO SCH (21:25)
[2021-03-12] MEDS: TOPIRAMATE (TopAMAX) 100 MG TAB PO SCH (21:26)
[2021-03-12 21:31] LABS: HEMATOCRIT 27.7 % (42.0-52.0); HEMOGLOBIN 9.1 g/dl (13.5-17.5)
[2021-03-13] MEDS: **hydrALAZINE** 10 MG TAB PO SCH ×2 (01:51→08:00)
[2021-03-13 03:01] LABS: HEMOGLOBIN 8.9 g/dl (13.5-17.5)
[2021-03-13 06:00] VITALS: BP 162/57
[2021-03-13 06:12] LABS: HEMATOCRIT 28.1 % (42.0-52.0); HEMOGLOBIN 9.2 g/dl (13.5-17.5); MEAN CORPUSCULAR HEMOGLOBIN 29.6 pg (27.0-33.0); MEAN CORPUSCULAR HGB CONC 32.7 g/dl (32.0-36.5); MEAN CORPUSCULAR VOLUME 90.4 fl (80.0-96.0); PLATELET COUNT, AUTOMATED 346 10^3/uL (150-450); RED BLOOD COUNT 3.11 10^6/uL (4.30-6.10); WHITE BLOOD COUNT 13.2 10^3/uL (4.0-10.0)
[2021-03-13 06:45] LABS: CALCIUM LEVEL 8.6 MG/DL (8.5-10.1); CREATININE FOR GFR 1.41 MG/DL (0.70-1.30); MAGNESIUM LEVEL 2.1 MG/DL (1.8-2.4); POTASSIUM SERUM 3.9 MEQ/L (3.5-5.1)
[2021-03-13] MEDS: BISACODYL 10 MG SUPP PR SCH (08:11)
[2021-03-13] MEDS: ASPIRIN 81MG ENTERIC TABLET PO SCH (08:44)
[2021-03-13] MEDS: MAGNESIUM GLUCONATE 500 MG TAB PO SCH (08:44)
[2021-03-13] MEDS: MIRALAX *UNIT DOSE* 17GM PACKET PO SCH ×2 (08:44→08:47)
[2021-03-13] MEDS: IRON POLYSAC (NIFEREX) 150 MG CAP PO SCH (08:44)
[2021-03-13] MEDS: HumaLOG INSULIN (NovoLOG) PER UNIT SC SCH ×2 (08:44→12:34)
[2021-03-13 08:45] VITALS: BP 159/59
[2021-03-13] MEDS: CYANOCOBALAMIN 500 MCG TAB PO SCH (08:45)
[2021-03-13] MEDS ORDERED: lisinopriL 40 MG TAB PO SCH (09:00)
[2021-03-13 09:19] LABS: HEMATOCRIT 28.5 % (42.0-52.0); HEMOGLOBIN 9.3 g/dl (13.5-17.5)
[2021-03-13] MEDS: LEVEMIR (INSULIN DETEMIR) 1 UNITS/0.01ML SC SCH (09:50)
[2021-03-13] MEDS ORDERED: INSULANT SC (11:02)
[2021-03-13] MEDS ORDERED: AMLO1TAB25 PO (11:02)
[2021-03-13] MEDS ORDERED: BISA10SU PR (11:02)
[2021-03-13] MEDS ORDERED: LISI40TA4 PO (11:02)
[2021-03-13] MEDS ORDERED: IRON1TAB2 PO (11:02)
[2021-03-13] MEDS ORDERED: MULTTAB57 PO (11:02)
[2021-03-13] MEDS ORDERED: MIRA1POW3 PO (11:02)
[2021-03-13] MEDS: cefTRIAXone SOD 1 GM in D5W MINI-BAG PLUS 50 ML IV SCH (12:00)
[2021-03-14 04:07] LABS: Methylmalonic Acid 265 nmol/L (0-378)
== END 2021-03-13 14:31 | disposition home or self-care (01) | DRG 811 ==
LOC: M ED 06:07 → M ED INP 12:14 → M PCU 21:30 → ENRESERVTM 21:39 → ENRESERVDT 21:39 → M MSPAV 03-12 17:16
PROVIDERS: ADMIT Family Medicine; ATTEND Internal Medicine
DX: D64.9 Anemia, unspecified (principal); G93.41 Metabolic encephalopathy; N17.9 Acute kidney failure, unspecified; N39.0 Urinary tract infection, site not specified; I50.32 Chronic diastolic (congestive) heart failure; K59.00 Constipation, unspecified; I11.0 Hypertensive heart disease with heart failure; E83.42 Hypomagnesemia; E87.8 Other disorders of electrolyte and fluid balance, not elsewhere classified; E11.9 Type 2 diabetes mellitus without complications; M54.5 Low back pain; Z20.822 Contact with and (suspected) exposure to COVID-19; Z79.82 Long term (current) use of aspirin; Z79.899 Other long term (current) drug therapy; Z88.1 Allergy status to other antibiotic agents; Z88.8 Allergy status to other drugs, medicaments and biological substances; Z91.040 Latex allergy status; Z91.14 Patient's other noncompliance with medication regimen